=== PATIENT | female | born 1995 | race African-American/Black ===

== ENCOUNTER 2019-06-05 10:16 | Emergency (ER) | payer MEDICAID, OTHER ==
[~2019-06-05] VITALS: Ht 152.4 cm; Wt 84.1 kg
[~2019-06-05 10:16] MED LIST: NO MEDS
[2019-06-05] MEDS ORDERED: HYDR50CA9 PO (10:21)
[2019-06-05] MEDS ORDERED: ONDANSETRON HCL 4 MG TABLET PO ONE (12:00)
[2019-06-05 12:33] LABS: INFLUENZA TYPE A NEGATIVE FOR TYPE A (NEGATIVE); INFLUENZA TYPE B NEGATIVE FOR TYPE B (NEGATIVE)
[2019-06-05 13:03] LABS: BASOPHILS % (AUTO) 0.6 % (0.0-2.0); EOSINOPHILS % (AUTO) 0.6 % (1.0-6.0); HEMATOCRIT 41.4 % (36-46); HEMOGLOBIN 13.7 g/dL (12.0-16.0); LYMPHOCYTES # (AUTO) 2.2 K/uL (1.0-4.8); LYMPHOCYTES % (AUTO) 32.5 % (22.0-44.0); MEAN CORPUSCULAR HGB CONC 33.2 G/dL (31.0-37.0); MEAN CORPUSCULAR VOLUME 90 fL (80-100); MONOCYTES # (AUTO) 0.5 K/uL (0.1-1.0); MONOCYTES % (AUTO) 6.7 % (2.0-9.0); NEUTROPHILS # (AUTO) 4.1 K/uL (1.8-7.7); NEUTROPHILS % (AUTO) 59.6 % (40.0-70.0); PLATELET COUNT (AUTO) 371 K/uL (150-450); RED BLOOD CELL COUNT(AUTO) 4.58 MIL/uL (4.00-5.20); RED CELL DISTRIBUTION WIDTH 14.4 % (11.5-14.5)
[2019-06-05 13:23] LABS: ANION GAP 9 mmol/L (8-16); CALCIUM, TOTAL 9.7 mg/dL (8.8-10.5); CARBON DIOXIDE 26 mmol/L (22-29); CHLORIDE 102 mmol/L (98-107); GLOMERULAR FILTR. RATE CALC > 60 mL/min (>60); GLUCOSE,RANDOM 86 mg/dL (70-110); POTASSIUM 4.1 mmol/L (3.5-5.1); SODIUM SERUM 137 mmol/L (136-145); UREA NITROGEN, BLOOD 5 mg/dL (7-18)
[2019-06-05 13:34] LABS: B-TYPE NATRIURETIC PEPTIDE 9 pg/mL (0-100)
[2019-06-05 13:48] LABS: ALANINE AMINOTRANSFERASE 26 U/L (12-78); ALBUMIN 3.9 g/dL (3.4-5.0); ALKALINE PHOSPHATASE 111 U/L (46-116); ASPARTATE AMINOTRANSFERASE 30 U/L (15-37); BILIRUBIN,TOTAL 0.6 mg/dL (0.1-1.0); CREATINE KINASE, TOTAL ONLY 134 U/L (26-192); TOTAL PROTEIN, SERUM 9.1 g/dL (6.4-8.2)
[2019-06-05 14:10] LABS: APPEARANCE,URINE CLOUDY (CLEAR); BILIRUBIN,URINE NEGATIVE (NEGATIVE); GLUCOSE, URINE (UA) NEGATIVE (NEGATIVE); KETONES,URINE NEGATIVE (NEGATIVE); LEUKOCYTE ESTERASE ,URINE SMALL (NEGATIVE); NITRATE,URINE NEGATIVE (NEGATIVE); OCCULT BLOOD,URINE NEGATIVE (NEGATIVE); PH,URINE 6.5 (5.0-8.0); PROTEIN,URINE NEGATIVE (NEGATIVE)
[2019-06-05] MEDS ORDERED: MAGNESIUM OXIDE 400 MG TABLET PO ONE (14:15)
[2019-06-05 14:20] LABS: AMPHET/METH SCREEN,URINE NEGATIVE (NEGATIVE); BARBITURATE SCREEN, URINE NEGATIVE (NEGATIVE); BENZODIAZEPINES SCREEN,URINE NEGATIVE (NEGATIVE); CANNABINOID SCREEN,URINE NEGATIVE (NEGATIVE); COCAINE SCREEN,URINE NEGATIVE (NEGATIVE); METHADONE SCREEN, URINE NEGATIVE (NEGATIVE); OPIATE SCREEN,URINE NEGATIVE (NEGATIVE); PHENCYCLIDINE SCREEN,URINE NEGATIVE (NEGATIVE)
[2019-06-05 14:29] LABS: BACTERIA,URINE Few /HPF (None Seen); RBC,URINE 0-2 /HPF (0-2)
[2019-06-05 14:30] LABS: SQUAMOUS EPITHELIAL CELL,UR Few /LPF (None Seen)
[2019-06-05 14:49] VITALS: BP 130/68
== END 2019-06-05 14:51 | disposition home or self-care (01) ==
LOC: EMS 10:18
DX: N39.0 Urinary tract infection, site not specified (principal); F41.9 Anxiety disorder, unspecified; I51.7 Cardiomegaly; M62.838 Other muscle spasm; E83.42 Hypomagnesemia; J45.909 Unspecified asthma, uncomplicated; F32.9 Major depressive disorder, single episode, unspecified
CPT/HCPCS: 36415; 71046; 80053; 80307; 81001; 82550; 83735; 83880; 84484; 84703; 85025; 87086; 87804; 93005; 99284; Q0162

== ENCOUNTER 2020-08-23 17:42 | Emergency (ER) | payer MEDICAID ==
[~2020-08-23] VITALS: Ht 162.6 cm; Wt 86.4 kg
[~2020-08-23 17:42] MED LIST changes: +HYDR50CA9 PO; -NO MEDS
[2020-08-23 17:43] VITALS: BP 112/64
== END 2020-08-23 22:00 | disposition left against medical advice (07) ==
LOC: EMS 17:42
DX: K08.89 Other specified disorders of teeth and supporting structures (principal); Z53.21 Procedure and treatment not carried out due to patient leaving prior to being seen by health care provider

== ENCOUNTER 2021-04-10 12:34 | Inpatient (IN) | payer MEDICAID ==
[~2021-04-10] VITALS: Ht 152.4 cm; Wt 89.8 kg
[2021-04-10] MEDS ORDERED: ZOLPIDEM TARTRATE 10 MG TABLET PO PRN (14:15)
[2021-04-10] MEDS ORDERED: HALOPERIDOL 5 MG TABLET PO PRN (14:15)
[2021-04-10 17:11] VITALS: BP 109/71
[2021-04-10] MEDS ORDERED: PERMETHRIN 1% 60 ML LOTION TP ONE (18:15)
[2021-04-11 07:13] LABS: BASOPHILS % (AUTO) 0.7 % (0.0-2.0); EOSINOPHILS % (AUTO) 2.7 % (1.0-6.0); HEMATOCRIT 39.8 % (36-46); HEMOGLOBIN 12.8 g/dL (12.0-16.0); LYMPHOCYTES # (AUTO) 1.9 K/uL (1.0-4.8); LYMPHOCYTES % (AUTO) 28.8 % (22.0-44.0); MEAN CORPUSCULAR HEMOGLOBIN 28.6 pg (26.0-34.0); MEAN CORPUSCULAR HGB CONC 32.2 G/dL (31.0-37.0); MEAN CORPUSCULAR VOLUME 89 fL (80-100); MONOCYTES # (AUTO) 0.5 K/uL (0.1-1.0); MONOCYTES % (AUTO) 6.8 % (2.0-9.0); NEUTROPHILS # (AUTO) 4.1 K/uL (1.8-7.7); PLATELET COUNT (AUTO) 431 K/uL (150-450); RED BLOOD CELL COUNT(AUTO) 4.48 MIL/uL (4.00-5.20); RED CELL DISTRIBUTION WIDTH 14.9 % (11.5-14.5)
[2021-04-11 07:57] LABS: ALANINE AMINOTRANSFERASE 27 U/L (12-78); ALBUMIN 3.4 g/dL (3.4-5.0); ALKALINE PHOSPHATASE 97 U/L (46-116); ANION GAP 10 mmol/L (8-16); ASPARTATE AMINOTRANSFERASE 19 U/L (15-37); BILIRUBIN,TOTAL 0.4 mg/dL (0.1-1.0); CARBON DIOXIDE 25 mmol/L (22-29); CHLORIDE 104 mmol/L (98-107); CHOL/HDL RATIO 4.4 (3.9-5.7); CHOLESTEROL 223 mg/dL (131-200); CREATININE 0.93 mg/dL (0.60-1.30); FREE T4 (FREE THYROXINE) 1.17 ng/dL (0.76-1.46); GLOMERULAR FILTR. RATE CALC > 60 mL/min (>60); GLUCOSE,RANDOM 109 mg/dL (70-110); HCG,QUANTITATIVE < 1 mIU/mL (0-6); HDL CHOLESTEROL 51 mg/dL (40-60); LDL CHOL (CALC.) 150 mg/dL (0-130); POTASSIUM 3.8 mmol/L (3.5-5.1); SODIUM SERUM 139 mmol/L (136-145); THYROID STIMULATING HORMONE 1.29 uIU/mL (0.36-3.74); TRIGLYCERIDES 109 mg/dL (15-150); UREA NITROGEN, BLOOD 11 mg/dL (7-18)
[2021-04-11] MEDS ORDERED: PETROLATUM,WHITE 28 GM JELLY TP PRN (08:15)
[2021-04-11] MEDS ORDERED: ACETAMINOPHEN 325 MG TABLET PO PRN (08:15)
[2021-04-11] MEDS ORDERED: MAG HYDROX/AL HYDROX/SIMETH ES 30 ML SUSPENSION UDCUP PO PRN (08:15)
[2021-04-11] MEDS ORDERED: ALBUTEROL SULFATE HFA 90 MCG/PUFF 8 GM INHALER IH PRN (08:15)
[2021-04-11] MEDS ORDERED: LOPERAMIDE HCL 2 MG CAPSULE PO PRN (08:15)
[2021-04-11] MEDS ORDERED: DOCUSATE SODIUM 100 MG CAPSULE PO PRN (08:15)
[2021-04-11] MEDS ORDERED: NICOTINE 14 MG/24 HOUR PATCH TD PRN (08:15)
[2021-04-11] MEDS ORDERED: MAGNESIUM HYDROXIDE SUSPENSION 30 ML UDCUP PO PRN (08:15)
[2021-04-11] MEDS ORDERED: IBUPROFEN 400 MG TABLET PO PRN (08:15)
[2021-04-11] MEDS ORDERED: ONDANSETRON HCL 4 MG TABLET PO PRN (08:15)
[2021-04-11] MEDS ORDERED: GuaiFENesin/D-METHORPHAN [SUGAR-FREE] 200-20MG/10 ML SYRUP UDCUP PO PRN (08:15)
[2021-04-11] MEDS ORDERED: CloNIDine HCL 0.1 MG TABLET PO PRN (08:15)
[2021-04-11 08:30] VITALS: BP 106/66
[2021-04-11 10:00] VITALS: BP 114/70
[2021-04-11] MEDS: RisperiDONE 3 MG TABLET PO SCH ×2 (10:05→20:06)
[2021-04-11] MEDS: LORazepam 2 MG TABLET PO PRN (10:06)
[2021-04-11 16:02] VITALS: BP 106/72
[2021-04-12 06:12] VITALS: BP 104/57
[2021-04-12] MEDS: LORazepam 2 MG TABLET PO PRN (07:51)
[2021-04-12] MEDS: RisperiDONE 3 MG TABLET PO SCH ×2 (07:52→20:10)
[2021-04-12 08:15] VITALS: BP 111/64
[2021-04-12 10:00] VITALS: BP 110/70
[2021-04-12 16:02] VITALS: BP 117/60
[2021-04-13 01:20] VITALS: BP 110/67
[2021-04-13] MEDS: RisperiDONE 3 MG TABLET PO SCH ×2 (08:10→20:34)
[2021-04-13 08:15] VITALS: BP 114/68
[2021-04-13] MEDS: LORazepam 2 MG TABLET PO PRN ×2 (09:36→16:46)
[2021-04-13 16:19] VITALS: BP 116/71
[2021-04-14 00:29] VITALS: BP 110/66
[2021-04-14] MEDS: RisperiDONE 3 MG TABLET PO SCH ×2 (08:02→20:16)
[2021-04-14 08:29] VITALS: BP 114/68
[2021-04-14 16:14] VITALS: BP 107/68
[2021-04-15 00:10] VITALS: BP 102/62
[2021-04-15] MEDS: RisperiDONE 3 MG TABLET PO SCH ×2 (08:02→20:06)
[2021-04-15 08:14] VITALS: BP 109/67
[2021-04-15] MEDS: LORazepam 2 MG TABLET PO PRN ×2 (09:38→16:08)
[2021-04-15 10:37] VITALS: BP 112/70
[2021-04-15 13:12] LABS: GLUCOMETER DEV NAME(LOC) BV3S.; GLUCOSE,POINT OF CARE 97 MG/DL (70-110)
[2021-04-15 14:49] VITALS: BP 121/80
[2021-04-15 16:05] VITALS: BP 119/70
[2021-04-16 01:08] VITALS: BP 110/66
[2021-04-16 07:44] LABS: BASOPHILS % (AUTO) 0.6 % (0.0-2.0); EOSINOPHILS % (AUTO) 1.4 % (1.0-6.0); HEMATOCRIT 39.4 % (36-46); LYMPHOCYTES # (AUTO) 2.2 K/uL (1.0-4.8); LYMPHOCYTES % (AUTO) 29.7 % (22.0-44.0); MEAN CORPUSCULAR HEMOGLOBIN 29.3 pg (26.0-34.0); MEAN CORPUSCULAR HGB CONC 33.1 G/dL (31.0-37.0); MEAN CORPUSCULAR VOLUME 89 fL (80-100); MONOCYTES # (AUTO) 0.5 K/uL (0.1-1.0); MONOCYTES % (AUTO) 7.1 % (2.0-9.0); NEUTROPHILS # (AUTO) 4.6 K/uL (1.8-7.7); NEUTROPHILS % (AUTO) 61.2 % (40.0-70.0); PLATELET COUNT (AUTO) 410 K/uL (150-450); RED BLOOD CELL COUNT(AUTO) 4.44 MIL/uL (4.00-5.20); RED CELL DISTRIBUTION WIDTH 15.3 % (11.5-14.5)
[2021-04-16] MEDS: RisperiDONE 3 MG TABLET PO SCH (07:58)
[2021-04-16 08:04] LABS: ANION GAP 11 mmol/L (8-16); CARBON DIOXIDE 25 mmol/L (22-29); CHLORIDE 101 mmol/L (98-107); CREATININE 0.92 mg/dL (0.60-1.30); GLOMERULAR FILTR. RATE CALC > 60 mL/min (>60); GLUCOSE,RANDOM 94 mg/dL (70-110); POTASSIUM 4.1 mmol/L (3.5-5.1); SODIUM SERUM 137 mmol/L (136-145); UREA NITROGEN, BLOOD 8 mg/dL (7-18)
[2021-04-16 08:20] VITALS: BP 103/71
[2021-04-16] MEDS ORDERED: RISP3TAB44 PO (09:32)
== END 2021-04-16 11:45 | disposition home or self-care (01) | DRG 750 ==
LOC: B3A 16:53
DX: F25.0 Schizoaffective disorder, bipolar type (principal); J18.9 Pneumonia, unspecified organism; B85.2 Pediculosis, unspecified; E66.9 Obesity, unspecified; E78.5 Hyperlipidemia, unspecified; Z79.899 Other long term (current) drug therapy; Z91.14 Patient's other noncompliance with medication regimen; R73.03 Prediabetes; K80.20 Calculus of gallbladder without cholecystitis without obstruction; R00.0 Tachycardia, unspecified; Z68.38 Body mass index [BMI] 38.0-38.9, adult
CPT/HCPCS: 80048; 80053; 80061; 82962; 83036; 84436; 84439; 84443; 84702; 85025; 87081; G0480; J3535

== ENCOUNTER 2023-08-24 23:12 | Emergency (ER) | payer MEDICAID ==
[~2023-08-24] VITALS: Ht 154.9 cm; Wt 102.0 kg
[~2023-08-24 23:12] MED LIST changes: -HYDR50CA9 PO; +RISP3TAB44 PO
[2023-08-24 23:56] LABS: BASOPHILS % (AUTO) 0.5 % (0.0-2.0); EOSINOPHILS % (AUTO) 2.2 % (1.0-6.0); HEMATOCRIT 33.9 % (36-46); HEMOGLOBIN 11.2 g/dL (12.0-16.0); LYMPHOCYTES # (AUTO) 3.3 K/uL (1.0-4.8); LYMPHOCYTES % (AUTO) 36.7 % (22.0-44.0); MEAN CORPUSCULAR HEMOGLOBIN 28.9 pg (26.0-34.0); MEAN CORPUSCULAR VOLUME 88 fL (80-100); MONOCYTES # (AUTO) 0.5 K/uL (0.1-1.0); MONOCYTES % (AUTO) 6.1 % (2.0-9.0); NEUTROPHILS # (AUTO) 4.8 K/uL (1.8-7.7); NEUTROPHILS % (AUTO) 54.5 % (40.0-70.0); PLATELET COUNT (AUTO) 411 K/uL (150-450); RED BLOOD CELL COUNT(AUTO) 3.87 MIL/uL (4.00-5.20); RED CELL DISTRIBUTION WIDTH 15.1 % (11.5-14.5); WHITE BLOOD COUNT (AUTO) 8.9 K/uL (4.5-11.0)
[2023-08-25 00:05] LABS: ANION GAP 11 mmol/L (8-16); CALCIUM, TOTAL 9.4 mg/dL (8.8-10.5); CARBON DIOXIDE 26 mmol/L (22-29); CHLORIDE 102 mmol/L (98-107); CREATININE 1.07 mg/dL (0.60-1.30); GLOMERULAR FILTR. RATE CALC > 60 mL/min (>60); GLUCOSE,RANDOM 113 mg/dL (70-110); POTASSIUM 3.9 mmol/L (3.5-5.1); SODIUM SERUM 139 mmol/L (136-145); UREA NITROGEN, BLOOD 10 mg/dL (7-18)
[2023-08-25 00:11] LABS: ALANINE AMINOTRANSFERASE 23 U/L (12-78); ALBUMIN 3.3 g/dL (3.4-5.0); ALKALINE PHOSPHATASE 145 U/L (46-116); ASPARTATE AMINOTRANSFERASE 20 U/L (15-37); BILIRUBIN,TOTAL 0.2 mg/dL (0.1-1.0); TOTAL PROTEIN, SERUM 8.7 g/dL (6.4-8.2)
[2023-08-25 00:16] VITALS: TEMP 98
[2023-08-25 00:34] LABS: ALCOHOL, BLOOD (SERUM) < 3 mg/dL (0-10)
[2023-08-25 00:44] LABS: HCG,QUANTITATIVE < 1 mIU/mL (0-6)
[2023-08-25] MEDS ORDERED: RisperiDONE 1 MG TABLET PO ONE (01:30)
[2023-08-25] MEDS ORDERED: KETOROLAC TROMETHAMINE 60 MG/2 ML VIAL IM ONE (01:30)
[2023-08-25 06:22] VITALS: BP 109/64; PULSE 87; RESP 16
== END 2023-08-25 06:17 | disposition home or self-care (01) ==
LOC: EMS 23:12
DX: F25.0 Schizoaffective disorder, bipolar type (principal); F41.9 Anxiety disorder, unspecified; J45.909 Unspecified asthma, uncomplicated
CPT/HCPCS: 99283; 80053; 84702; 85025; 36415; G0480; J1885

== ENCOUNTER 2023-08-29 18:13 | Emergency (ER) | payer MEDICAID | END 2023-08-29 22:15 | disposition left against medical advice (07) | LOC: EMS 19:52 | DX: F41.9 Anxiety disorder, unspecified (principal); Z53.21 Procedure and treatment not carried out due to patient leaving prior to being seen by health care provider | CPT/HCPCS: 99281; Z7502 ==

== ENCOUNTER 2023-10-04 12:19 | Emergency (ER) | payer MEDICAID ==
[~2023-10-04] VITALS: Ht 154.9 cm; Wt 104.5 kg
[2023-10-04 12:25] VITALS: TEMP 98.3
[2023-10-04 13:25] LABS: BASOPHILS % (AUTO) 0.5 % (0.0-2.0); EOSINOPHILS % (AUTO) 0.8 % (1.0-6.0); HEMATOCRIT 31.3 % (36-46); HEMOGLOBIN 10.2 g/dL (12.0-16.0); LYMPHOCYTES % (AUTO) 35.2 % (22.0-44.0); MEAN CORPUSCULAR HEMOGLOBIN 28.3 pg (26.0-34.0); MEAN CORPUSCULAR HGB CONC 32.5 G/dL (31.0-37.0); MEAN CORPUSCULAR VOLUME 87 fL (80-100); MONOCYTES # (AUTO) 0.4 K/uL (0.1-1.0); MONOCYTES % (AUTO) 4.4 % (2.0-9.0); NEUTROPHILS # (AUTO) 5.1 K/uL (1.8-7.7); NEUTROPHILS % (AUTO) 59.1 % (40.0-70.0); PLATELET COUNT (AUTO) 443 K/uL (150-450); RED BLOOD CELL COUNT(AUTO) 3.59 MIL/uL (4.00-5.20); WHITE BLOOD COUNT (AUTO) 8.6 K/uL (4.5-11.0)
[2023-10-04] MEDS ORDERED: IRON1CAP3 PO (14:00)
[2023-10-04 14:13] VITALS: BP 122/60; PULSE 88; RESP 18
== END 2023-10-04 14:14 | disposition home or self-care (01) ==
LOC: EMS 12:20
DX: N93.8 Other specified abnormal uterine and vaginal bleeding (principal); D64.9 Anemia, unspecified; F41.9 Anxiety disorder, unspecified; J45.909 Unspecified asthma, uncomplicated; F31.9 Bipolar disorder, unspecified; F20.9 Schizophrenia, unspecified
CPT/HCPCS: 84702; 85025; 99283

== ENCOUNTER 2023-12-11 12:52 | Emergency (ER) | payer MEDICAID ==
[~2023-12-11] VITALS: Ht 154.9 cm; Wt 104.5 kg
[~2023-12-11 12:52] MED LIST changes: +IRON1CAP3 PO
[2023-12-11 13:16] VITALS: BP 120/76; PULSE 74; RESP 14; TEMP 97.6
[2023-12-11 13:44] LABS: BASOPHILS % (AUTO) 0.5 % (0.0-2.0); EOSINOPHILS % (AUTO) 1.3 % (1.0-6.0); HEMATOCRIT 27.7 % (36-46); LYMPHOCYTES % (AUTO) 42.5 % (22.0-44.0); MEAN CORPUSCULAR HEMOGLOBIN 26.9 pg (26.0-34.0); MEAN CORPUSCULAR HGB CONC 32.6 G/dL (31.0-37.0); MEAN CORPUSCULAR VOLUME 83 fL (80-100); MONOCYTES # (AUTO) 0.4 K/uL (0.1-1.0); MONOCYTES % (AUTO) 5.9 % (2.0-9.0); NEUTROPHILS # (AUTO) 3.5 K/uL (1.8-7.7); NEUTROPHILS % (AUTO) 49.8 % (40.0-70.0); PLATELET COUNT (AUTO) 569 K/uL (150-450); RED BLOOD CELL COUNT(AUTO) 3.35 MIL/uL (4.00-5.20); RED CELL DISTRIBUTION WIDTH 15.6 % (11.5-14.5); WHITE BLOOD COUNT (AUTO) 7.1 K/uL (4.5-11.0)
[2023-12-11 13:59] LABS: ANION GAP 9 mmol/L (8-16); CALCIUM, TOTAL 8.8 mg/dL (8.8-10.5); CARBON DIOXIDE 26 mmol/L (22-29); CHLORIDE 103 mmol/L (98-107); CREATININE 1.02 mg/dL (0.60-1.30); GLOMERULAR FILTR. RATE CALC > 60 mL/min (>60); GLUCOSE,RANDOM 89 mg/dL (70-110); POTASSIUM 4.4 mmol/L (3.5-5.1); SODIUM SERUM 138 mmol/L (136-145); UREA NITROGEN, BLOOD 10 mg/dL (7-18)
[2023-12-11 14:05] LABS: ALANINE AMINOTRANSFERASE 24 U/L (12-78); ALBUMIN 3.2 g/dL (3.4-5.0); ALKALINE PHOSPHATASE 124 U/L (46-116); ASPARTATE AMINOTRANSFERASE 21 U/L (15-37); BILIRUBIN,TOTAL 0.2 mg/dL (0.1-1.0); LIPASE 15 U/L (16-77); TOTAL PROTEIN, SERUM 8.6 g/dL (6.4-8.2)
[2023-12-11] MEDS ORDERED: FERR325T27 PO (14:29)
== END 2023-12-11 15:19 | disposition home or self-care (01) ==
LOC: EMS 12:52
DX: N93.8 Other specified abnormal uterine and vaginal bleeding (principal); F25.0 Schizoaffective disorder, bipolar type; D64.9 Anemia, unspecified; F41.9 Anxiety disorder, unspecified; J45.909 Unspecified asthma, uncomplicated
CPT/HCPCS: 80053; 83690; 84703; 85025; 99283

== ENCOUNTER 2023-12-17 11:53 | Emergency (ER) | payer MEDICAID ==
[~2023-12-17] VITALS: Ht 154.9 cm; Wt 109.1 kg
[~2023-12-17 11:53] MED LIST changes: +FERR325T27 PO; -IRON1CAP3 PO; -RISP3TAB44 PO
[2023-12-17] MEDS ORDERED: RISP1TAB48 PO (12:04)
[2023-12-17] MEDS ORDERED: QUET300T2 PO (12:04)
[2023-12-17] MEDS ORDERED: FLUO-342 PO (12:04)
[2023-12-17 12:26] LABS: BASOPHILS % (AUTO) 0.2 % (0.0-2.0); HEMATOCRIT 26.9 % (36-46); HEMOGLOBIN 8.5 g/dL (12.0-16.0); LYMPHOCYTES # (AUTO) 2.5 K/uL (1.0-4.8); LYMPHOCYTES % (AUTO) 33.9 % (22.0-44.0); MEAN CORPUSCULAR HGB CONC 31.8 G/dL (31.0-37.0); MEAN CORPUSCULAR VOLUME 82 fL (80-100); MONOCYTES # (AUTO) 0.2 K/uL (0.1-1.0); NEUTROPHILS # (AUTO) 4.5 K/uL (1.8-7.7); NEUTROPHILS % (AUTO) 61.9 % (40.0-70.0); PLATELET COUNT (AUTO) 567 K/uL (150-450); RED BLOOD CELL COUNT(AUTO) 3.29 MIL/uL (4.00-5.20); RED CELL DISTRIBUTION WIDTH 15.6 % (11.5-14.5); WHITE BLOOD COUNT (AUTO) 7.3 K/uL (4.5-11.0)
[2023-12-17 12:43] LABS: ANION GAP 11 mmol/L (8-16); CALCIUM, TOTAL 8.3 mg/dL (8.8-10.5); CARBON DIOXIDE 24 mmol/L (22-29); CHLORIDE 101 mmol/L (98-107); CREATININE 1.04 mg/dL (0.60-1.30); GLOMERULAR FILTR. RATE CALC > 60 mL/min (>60); GLUCOSE,RANDOM 137 mg/dL (70-110); POTASSIUM 3.8 mmol/L (3.5-5.1); SODIUM SERUM 136 mmol/L (136-145); UREA NITROGEN, BLOOD 8 mg/dL (7-18)
[2023-12-17 12:48] LABS: ALCOHOL, URINE DRUG SCREEN NEGATIVE (NEGATIVE); AMPHET/METH SCREEN,URINE NEGATIVE (NEGATIVE); BARBITURATE SCREEN, URINE NEGATIVE (NEGATIVE); BENZODIAZEPINES SCREEN,URINE NEGATIVE (NEGATIVE); CANNABINOID SCREEN,URINE NEGATIVE (NEGATIVE); COCAINE SCREEN,URINE NEGATIVE (NEGATIVE); METHADONE SCREEN, URINE NEGATIVE (NEGATIVE); OPIATE SCREEN,URINE NEGATIVE (NEGATIVE); PHENCYCLIDINE SCREEN,URINE NEGATIVE (NEGATIVE)
[2023-12-17 12:48] LABS: ALANINE AMINOTRANSFERASE 24 U/L (12-78); ALKALINE PHOSPHATASE 128 U/L (46-116); ASPARTATE AMINOTRANSFERASE 22 U/L (15-37); BILIRUBIN,TOTAL 0.3 mg/dL (0.1-1.0); TOTAL PROTEIN, SERUM 8.2 g/dL (6.4-8.2)
[2023-12-17 12:51] LABS: ALCOHOL, BLOOD (SERUM) < 3 mg/dL (0-10)
[2023-12-17 12:55] LABS: COVID AG,FIA SOURCE NASAL SWAB
[2023-12-17 13:50] LABS: SARS-COV2 (COVID) ANTIGEN,FIA Negative (Negative)
[2023-12-17 16:14] VITALS: BP 112/50; PULSE 80; RESP 18
[2023-12-17] MEDS: RisperiDONE 1 MG TABLET PO ONE (18:29)
[2023-12-17] MEDS: LORazepam 1 MG TABLET PO ONE (18:29)
== END 2023-12-17 18:32 | disposition home or self-care (01) ==
LOC: EMS 11:54
DX: R45.851 Suicidal ideations (principal); F25.0 Schizoaffective disorder, bipolar type; N93.8 Other specified abnormal uterine and vaginal bleeding; F41.9 Anxiety disorder, unspecified; D64.9 Anemia, unspecified; J45.909 Unspecified asthma, uncomplicated; Z20.822 Contact with and (suspected) exposure to COVID-19
CPT/HCPCS: 99283; 87426; 80053; 85025; 36415; 80307; G0480

== ENCOUNTER 2024-01-24 14:49 | Inpatient (IN) | payer MEDICAID ==
[~2024-01-24] VITALS: Ht 154.9 cm; Wt 104.3 kg
[~2024-01-24 14:49] MED LIST changes: -FERR325T27 PO; +FLUO-342 PO; +QUET300T2 PO; +RISP1TAB48 PO
[2024-01-24] MEDS ORDERED: HYDR-4808 PO (14:55)
[2024-01-24 15:34] LABS: BASOPHILS % (AUTO) 0.5 % (0.0-2.0); EOSINOPHILS % (AUTO) 1.9 % (1.0-6.0); HEMATOCRIT 26.6 % (36-46); HEMOGLOBIN 8.5 g/dL (12.0-16.0); LYMPHOCYTES % (AUTO) 35.2 % (22.0-44.0); MEAN CORPUSCULAR HEMOGLOBIN 24.2 pg (26.0-34.0); MEAN CORPUSCULAR VOLUME 76 fL (80-100); MONOCYTES # (AUTO) 0.5 K/uL (0.1-1.0); NEUTROPHILS # (AUTO) 4.8 K/uL (1.8-7.7); NEUTROPHILS % (AUTO) 56.4 % (40.0-70.0); PLATELET COUNT (AUTO) 658 K/uL (150-450); RED BLOOD CELL COUNT(AUTO) 3.51 MIL/uL (4.00-5.20); RED CELL DISTRIBUTION WIDTH 17.2 % (11.5-14.5); WHITE BLOOD COUNT (AUTO) 8.6 K/uL (4.5-11.0)
[2024-01-24 15:52] LABS: ANION GAP 9 mmol/L (8-16); CALCIUM, TOTAL 9.4 mg/dL (8.8-10.5); CARBON DIOXIDE 27 mmol/L (22-29); CHLORIDE 102 mmol/L (98-107); CREATININE 1.07 mg/dL (0.60-1.30); GLOMERULAR FILTR. RATE CALC > 60 mL/min (>60); GLUCOSE,RANDOM 90 mg/dL (70-110); POTASSIUM 4.4 mmol/L (3.5-5.1); SODIUM SERUM 138 mmol/L (136-145); UREA NITROGEN, BLOOD 8 mg/dL (7-18)
[2024-01-24 15:57] LABS: ALANINE AMINOTRANSFERASE 23 U/L (12-78); ALBUMIN 3.4 g/dL (3.4-5.0); ALKALINE PHOSPHATASE 144 U/L (46-116); ASPARTATE AMINOTRANSFERASE 20 U/L (15-37); BILIRUBIN,TOTAL 0.4 mg/dL (0.1-1.0); TOTAL PROTEIN, SERUM 9.1 g/dL (6.4-8.2)
[2024-01-24 15:59] LABS: ALCOHOL, BLOOD (SERUM) < 3 mg/dL (0-10)
[2024-01-24 16:27] LABS: PH,URINE DRUG SCREEN 6.5 (5.0-8.0)
[2024-01-24 16:34] LABS: ALCOHOL, URINE DRUG SCREEN NEGATIVE (NEGATIVE); AMPHET/METH SCREEN,URINE NEGATIVE (NEGATIVE); BARBITURATE SCREEN, URINE NEGATIVE (NEGATIVE); BENZODIAZEPINES SCREEN,URINE NEGATIVE (NEGATIVE); CANNABINOID SCREEN,URINE NEGATIVE (NEGATIVE); COCAINE SCREEN,URINE NEGATIVE (NEGATIVE); METHADONE SCREEN, URINE NEGATIVE (NEGATIVE); OPIATE SCREEN,URINE NEGATIVE (NEGATIVE); PHENCYCLIDINE SCREEN,URINE NEGATIVE (NEGATIVE)
[2024-01-24 18:31] LABS: COVID AG,FIA SOURCE NASAL SWAB
[2024-01-24 18:49] LABS: SARS-COV2 (COVID) ANTIGEN,FIA Negative (Negative)
[2024-01-24] MEDS: LORazepam 2 MG TABLET PO PRN (21:58)
[2024-01-24] MEDS: ZOLPIDEM TARTRATE 10 MG TABLET PO PRN (23:11)
[2024-01-25 08:52] VITALS: BP 101/67; PULSE 87; RESP 18; TEMP 97.2
[2024-01-25] MEDS: FLUoxetine HCL 20 MG CAPSULE PO SCH (10:05)
[2024-01-25] MEDS: HydrOXYzine PAMOATE 50 MG CAPSULE PO SCH (10:05)
[2024-01-25 21:00] VITALS: BP 120/70; PULSE 92; RESP 18; TEMP 97.4
[2024-01-25] MEDS: QUEtiapine FUMARATE 100 MG TABLET PO SCH (21:12)
[2024-01-26 08:06] VITALS: BP 115/68; PULSE 88; RESP 17; TEMP 97.1
[2024-01-26 08:40] VITALS: BP 116/65; PULSE 74; RESP 16; TEMP 97.9; O2SAT 100
[2024-01-26 09:02] LABS: CHOL/HDL RATIO 3.6 (3.9-5.7); FREE T4 (FREE THYROXINE) 1.01 ng/dL (0.76-1.46); THYROID STIMULATING HORMONE 1.4 uIU/mL (0.36-3.74)
[2024-01-26] MEDS: FERROUS SULFATE 325 MG EC TABLET PO SCH (11:46)
[2024-01-26 21:36] VITALS: BP 120/60; PULSE 78; RESP 18; TEMP 97.5; O2SAT 95
[2024-01-26 23:16] VITALS: RESP 18
[2024-01-27 10:59] VITALS: BP 114/73; PULSE 77; RESP 18; TEMP 98; O2SAT 97
[2024-01-27] MEDS ORDERED: MAGNESIUM HYDROXIDE SUSPENSION 30 ML UDCUP PO PRN (18:30)
[2024-01-27] MEDS ORDERED: MAG HYDROX/ALUMINUM HYD/SIMETH ES 30 ML SUSPENSION UDCUP PO PRN (18:30)
[2024-01-27] MEDS ORDERED: ACETAMINOPHEN 325 MG TABLET PO PRN (18:30)
[2024-01-27] MEDS ORDERED: LOPERAMIDE HCL 2 MG CAPSULE PO PRN (18:30)
[2024-01-27] MEDS ORDERED: CloNIDine HCL 0.1 MG TABLET PO PRN (18:30)
[2024-01-27] MEDS ORDERED: ONDANSETRON HCL 4 MG TABLET PO PRN (18:30)
[2024-01-27] MEDS ORDERED: PETROLATUM,WHITE 28 GM JELLY TP PRN (18:30)
[2024-01-27] MEDS ORDERED: DOCUSATE SODIUM 100 MG CAPSULE PO PRN (18:30)
[2024-01-27] MEDS ORDERED: NICOTINE 14 MG/24 HOUR PATCH TD PRN (18:30)
[2024-01-27] MEDS ORDERED: GuaiFENesin/D-METHORPHAN [SUGAR-FREE] 200-20MG/10 ML SYRUP UDCUP PO PRN (18:30)
[2024-01-27] MEDS ORDERED: ALBUTEROL SULFATE HFA 90 MCG/PUFF 8 GM INHALER IH PRN (18:30)
[2024-01-27 20:04] VITALS: BP 118/80; PULSE 79; RESP 17; TEMP 98.1
[2024-01-27] MEDS: QUEtiapine FUMARATE 100 MG TABLET PO SCH (21:28)
[2024-01-28 12:41] VITALS: BP 114/61; PULSE 70; RESP 18; TEMP 97.5; O2SAT 98
[2024-01-28 20:37] VITALS: BP 111/73; PULSE 63; RESP 16; TEMP 97.6; O2SAT 95
[2024-01-29] MEDS: IBUPROFEN 400 MG TABLET PO PRN (11:08)
[2024-01-29] MEDS: HALOPERIDOL 5 MG TABLET PO PRN (17:45)
[2024-01-29 22:20] VITALS: BP 151/105; PULSE 108; RESP 20; TEMP 97.3; O2SAT 100
[2024-01-29 22:34] VITALS: BP 130/80; PULSE 107; RESP 19; TEMP 97.3; O2SAT 100
[2024-01-30 08:02] VITALS: RESP 18
[2024-01-30 08:25] VITALS: BP 112/70; PULSE 100; RESP 18; TEMP 98; O2SAT 100
[2024-01-30 09:02] VITALS: RESP 18
[2024-01-30 11:00] VITALS: BP 118/88; PULSE 105; RESP 18; TEMP 98.4; O2SAT 98
[2024-01-30] MEDS ORDERED: QUET100T34 PO (12:35)
[2024-01-30] MEDS ORDERED: HYDR50CA7 PO (12:35)
[2024-01-30] MEDS ORDERED: FLUO-418 PO (12:35)
== END 2024-01-30 17:00 | disposition left against medical advice (07) | DRG 750 ==
LOC: EMS 14:49 → B3A 19:06
PROVIDERS: ADMIT Psychiatry & Neurology Child & Adolescent Psychiatry; ATTEND Psychiatry & Neurology Child & Adolescent Psychiatry
PROC: GZHZZZZ Group Psychotherapy (ICD-10-PCS; principal; 2024-01-25)
PROC: GZ51ZZZ Individual Psychotherapy, Behavioral (ICD-10-PCS; 2024-01-25)
DX: F25.0 Schizoaffective disorder, bipolar type (principal); E66.9 Obesity, unspecified; E78.5 Hyperlipidemia, unspecified; J45.909 Unspecified asthma, uncomplicated; R73.03 Prediabetes; Z59.00 Homelessness unspecified; F41.9 Anxiety disorder, unspecified; Z20.822 Contact with and (suspected) exposure to COVID-19; Z53.29 Procedure and treatment not carried out because of patient's decision for other reasons
CPT/HCPCS: 80053; 80061; 80307; 84439; 84443; 84703; 85025; 99285; G0480

== ENCOUNTER 2024-12-30 20:44 | Emergency (ER) | payer MEDICARE, MEDICAID ==
[~2024-12-30] VITALS: Ht 152.4 cm; Wt 100.0 kg
[~2024-12-30 20:44] MED LIST changes: -FLUO-342 PO; +FLUO-418 PO; +HYDR50CA7 PO; +QUET100T34 PO; -QUET300T2 PO; -RISP1TAB48 PO
[2024-12-30 21:23] LABS: COVID AG,FIA SOURCE NASAL SWAB
[2024-12-30 21:41] LABS: INFLUENZA TYPE A NEGATIVE FOR TYPE A (NEGATIVE); INFLUENZA TYPE B NEGATIVE FOR TYPE B (NEGATIVE); SARS-COV2 (COVID) ANTIGEN,FIA Negative (Negative)
[2024-12-30 22:40] VITALS: BP 132/67; PULSE 106; RESP 20; TEMP 98.3; O2SAT 100
[2024-12-30] MEDS ORDERED: AZIT250T9 PO (22:41)
[2024-12-30 23:13] LABS: ALCOHOL, URINE DRUG SCREEN NEGATIVE (NEGATIVE); AMPHET/METH SCREEN,URINE NEGATIVE (NEGATIVE); BARBITURATE SCREEN, URINE NEGATIVE (NEGATIVE); BENZODIAZEPINES SCREEN,URINE NEGATIVE (NEGATIVE); CANNABINOID SCREEN,URINE NEGATIVE (NEGATIVE); COCAINE SCREEN,URINE NEGATIVE (NEGATIVE); METHADONE SCREEN, URINE NEGATIVE (NEGATIVE); OPIATE SCREEN,URINE NEGATIVE (NEGATIVE); PHENCYCLIDINE SCREEN,URINE NEGATIVE (NEGATIVE)
[2024-12-30 23:18] LABS: APPEARANCE,URINE CLEAR (CLEAR); BILIRUBIN,URINE NEGATIVE (NEGATIVE); COLOR,URINE YELLOW (YELLOW); GLUCOSE, URINE (UA) NEGATIVE (NEGATIVE); KETONES,URINE TRACE mg/dL (NEGATIVE); LEUKOCYTE ESTERASE ,URINE TRACE (NEGATIVE); NITRATE,URINE NEGATIVE (NEGATIVE); OCCULT BLOOD,URINE SMALL (NEGATIVE); PH,URINE 6.5 (5.0-8.0); PH,URINE DRUG SCREEN 6.5 (5.0-8.0); PROTEIN,URINE 100-200,SEE CONFIRM mg/dL (NEGATIVE); SPECIFIC GRAVITIY, URINE 1.036 (1.003-1.030)
[2024-12-30 23:34] LABS: BACTERIA,URINE Moderate /HPF (None Seen); RBC,URINE 0-2 /HPF (0-2); SQUAMOUS EPITHELIAL CELL,UR Rare /LPF (None Seen); SULFOSALICYLIC ACID,URINE 2+ (Negative); WBC,URINE 0-2 /HPF (0-5)
== END 2024-12-30 22:51 | disposition home or self-care (01) ==
LOC: EMS 20:45
DX: J18.9 Pneumonia, unspecified organism (principal); J45.909 Unspecified asthma, uncomplicated; F41.9 Anxiety disorder, unspecified; F31.9 Bipolar disorder, unspecified; F20.9 Schizophrenia, unspecified; Z79.899 Other long term (current) drug therapy; Z20.822 Contact with and (suspected) exposure to COVID-19
CPT/HCPCS: 71045; 80307; 81001; 81002; 87086; 87804; 99283; 99284